=== PATIENT | female | born 1965 | race Caucasian/White ===

== ENCOUNTER 2016-12-05 19:29 | Emergency (ER) | payer OTHER ==
[2016-12-05 19:56] VITALS: RESP 16
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
--- NOTE | 2016-12-05 20:39 | XR ---
EXAMINATION TYPE: XR lumbar spine 2 or 3V DATE OF EXAM: 12/05/2016 8:32 PM COMPARISON: NONE HISTORY: Low back pain TECHNIQUE: 3 views FINDINGS: Vertebra have normal spacing and alignment. Posterior elements are intact. Sacroiliac joint s appear normal. There is no evidence of a compression fracture. IMPRESSION: Normal lumbar spine
--- NOTE | 2016-12-05 20:40 | XR ---
EXAMINATION TYPE: XR sacrum coccyx DATE OF EXAM: 12/05/2016 8:33 PM COMPARISON: NONE HISTORY: Back pain TECHNIQUE: 3 views FINDINGS: Segments have normal alignment. I see no fracture. Sacroiliac joints appear normal. IMPRESSION: Negative sacrum and coccyx exam.
[2016-12-05 20:58] VITALS: BP 138/70; PULSE 78; TEMP 97.8
== END 2016-12-05 20:57 | disposition home or self-care (01) ==
LOC: EC 19:29
DX: S30.0XXA Contusion of lower back and pelvis, initial encounter (principal); F32.9 Major depressive disorder, single episode, unspecified; F17.200 Nicotine dependence, unspecified, uncomplicated; Z88.5 Allergy status to narcotic agent; Z79.899 Other long term (current) drug therapy; W03.XXXA Other fall on same level due to collision with another person, initial encounter; Y93.F9 Activity, other caregiving; Y92.9 Unspecified place or not applicable; Y99.0 Civilian activity done for income or pay
CPT/HCPCS: 72100; 72220; 99283

== ENCOUNTER → 2016-12-09 | Outpatient (CLI) | payer OTHER ==
--- NOTE | 2016-12-09 17:07 | XR ---
EXAMINATION TYPE: XR cervical spine comp DATE OF EXAM: 12/09/2016 4:45 PM COMPARISON: 05/29/2014 HISTORY: 51-year-old female neck pain after fall TECHNIQUE: 5 views FINDINGS: Calcified interstitial densities in the right greater than left upper lung is redemonstrated. No pred ental space widening or prevertebral soft tissue swelling. Scattered facet and uncovertebral joint ar thropathy with mild degenerative disc interspace narrowing in the mid cervical spine. Alignment is ma intained. Normal odontoid view. On the left, changes result in minimal narrowing of the C4-C5, C5-C6, and C6-C7 neuroforamina. On the right, no significant bony spondylotic neuroforaminal narrowing. IMPRESSION: 1. Mild multilevel spondylotic change. No prevertebral soft tissue swelling, malalignment, or acute o sseous abnormality seen. 2. Redemonstrated a calcified interstitial densities in the right greater than left upper lungs as de scribed on CT of 08/22/2014.
== END | disposition home or self-care (01) ==
LOC: RADXRMAIN 16:21
PROVIDERS: ATTEND Emergency Medicine
DX: M47.812 Spondylosis without myelopathy or radiculopathy, cervical region (principal); S13.4XXA Sprain of ligaments of cervical spine, initial encounter
CPT/HCPCS: 72050

== ENCOUNTER → 2017-05-04 | Outpatient (CLI) | payer OTHER ==
--- NOTE | 2017-05-06 07:37 | MM ---
Reason for exam: screening (asymptomatic). Last mammogram was performed 1 year and 5 months ago. History: Patient is postmenopausal. Took hormonal contraceptives for 6 months. Physical Findings: A clinical breast exam by your physician is recommended on an annual basis and results should be correlated with mammographic findings. MG Screening Mammo w CAD Bilateral CC and MLO view(s) were taken. Prior study comparison: December 04, 2015, left breast MG 3d work up w/cad LT. November 26, 2015, bilateral MG screening mammo w CAD. January 02, 2014, bilateral digital screening mammo w/CAD. October 28, 2010, bilateral digital screening mammo w/CAD. The breast tissue is heterogeneously dense. This may lower the sensitivity of mammography. Stable global asymmetry posterior upper inner quadrant left breast. No significant changes when compared with prior studies. ASSESSMENT: Negative, BI-RAD 1 RECOMMENDATION: Routine screening mammogram of both breasts in 1 year.
== END | disposition home or self-care (01) ==
LOC: RADMAMWWP 11:08
PROVIDERS: ATTEND Obstetrics & Gynecology
DX: Z12.31 Encounter for screening mammogram for malignant neoplasm of breast (principal)

== ENCOUNTER → 2018-07-21 | Outpatient (CLI) | payer BC ==
--- NOTE | 2018-07-22 12:41 | MM ---
Reason for exam: screening (asymptomatic). Last mammogram was performed 1 year and 3 months ago. History: Patient is postmenopausal. Took hormonal contraceptives for 6 months. Physical Findings: A clinical breast exam by your physician is recommended on an annual basis and results should be correlated with mammographic findings. MG Screening Mammo w CAD Bilateral CC and MLO view(s) were taken. Prior study comparison: May 04, 2017, bilateral MG screening mammo w CAD. December 04, 2015, left breast MG 3d work up w/cad LT. The breast tissue is heterogeneously dense. This may lower the sensitivity of mammography. No suspicious abnormality. No significant changes when compared with prior studies. ASSESSMENT: Negative, BI-RAD 1 RECOMMENDATION: Routine screening mammogram of both breasts in 1 year.
== END | disposition home or self-care (01) ==
LOC: RADMAMWWP 12:40
PROVIDERS: ATTEND Internal Medicine
DX: Z12.31 Encounter for screening mammogram for malignant neoplasm of breast (principal)
CPT/HCPCS: 77067

== ENCOUNTER → 2019-05-17 | Outpatient (CLI) | payer BC ==
--- NOTE | 2019-05-17 20:15 | CONS ---
CONSULTATION REASON FOR CONSULTATION: Insomnia. This is a 53-year-old female patient who is seeing me for various complaints. She states that she recently was found to be snoring. She has occasionally woken up herself from sleep because of snoring. She has also chronic insomnia which has been gradually getting worse in severity, as will be stated later. She is also waking up tired and sleepy during the day, which is affecting her quality of life. Her sleep is fragmented, as the patient wakes up on multiple occasions. In general, this patient is having difficulty initiating and maintaining sleep. She goes to bed at various times, somewhere between 9 and 11:00. Sometimes it takes her more than 30 minutes to fall asleep. She wakes up frequently in the middle of the night. Sometimes it takes her an hour or two to fall back to sleep. She states that she is unable to take adequate hours of sleep. Despite spending a good 7-8 hours in bed, she thinks that she is not able to achieve adequate number of hours of sleep, although she cannot quantify or objectively say the exact number of hours of sleep that she is getting at night. She wakes up at least 6 times or more in the middle of the night. Upon further questioning, the patient has an extensive psychiatric history. She has a history of anxiety and history of bipolar disorder/depression. She is on a combination of medications that includes Prozac, Lamictal, Abilify and gabapentin. She has been followed up by [facility]. She has been given Ambien in the past to improve her sleep quality; however, this has resulted in sleepwalking and she ended up discontinuing the medication. Her depression is not active and I do not see any active symptoms of manic bipolar disorder, at least on clinical grounds. Other factors affecting her sleep quality include overactive bladder, and the patient wakes up frequently in the middle of the night to urinate. She occasionally wakes up in the middle of the night yelling and talking, and she has also occasional nightmares. On separate occasions she has awakened and gone to the kitchen, where she had a snack or bite of food, and she has no recollection that she did that; she would note that she did that by leftover food or crumbs on her kitchen counter. She is working various shifts. She works in a [employer], and her current work schedule varies, as the patient works 3 days a week afternoon shift, 3 days a week morning shift, and occasionally she works the midnight shift. No recent weight gain. No substance abuse. No alcoholism. No history of any motor vehicle accident because of feeling drowsy or sleepy during the day. PAST MEDICAL HISTORY: 1. Anxiety/depression/bipolar disorder. 2. Headaches. PAST SURGICAL HISTORY: Past surgical history includes: 1. Hysterectomy. 2. Tubal ligation. DRUG ALLERGIES: CODEINE. OUTPATIENT MEDICATION LIST: Outpatient medication list includes: 1. Prozac, dose not known, twice a day. 2. Lamictal, dose not known, twice a day. 3. Abilify once a day. 4. Gabapentin, dose not known, twice a day. 5. Topamax. 6. Loratadine. FAMILY HISTORY: Positive for blood pressure and is also positive for sleep apnea in a few family members. SOCIAL HISTORY: She is a nonsmoker. No history of alcoholism. No history of substance abuse. REVIEW OF SYSTEMS: Fourteen-point review of systems was done and the positive findings are all mentioned above in the history of present illness. Of significance is the absence of any sleep paralysis, hallucinations or cataplexy. There is positive history of sleepwalking and sleeptalking and nightmares and sleep eating disorder. She has anxiety and bipolar and panic. No heartburn. No palpitations. No chest pain at nighttime. No heartburn. No nausea. No emesis. No aspiration. No altered mentation. PHYSICAL EXAMINATION: VITAL SIGNS: BP is 129/71, pulse 60, respirations 16, temperature 98.0, saturation 98% on room air. Height is 5 feet 1 inch, weight 172. Neck size is 13 inches. BMI 31.9. GENERAL APPEARANCE: Calm, comfortable. Not in acute distress. HEAD: Atraumatic, normocephalic. NECK: Supple. There is no JVD. No goiter or neck masses. LUNGS: Clear to auscultation. HEART: Heart sounds are regular rate and rhythm. Normal S1, S2. No S3, S4. No murmurs. ABDOMEN: Soft, nontender. No organomegaly. EXTREMITIES: No edema. No cyanosis or clubbing. NEUROLOGIC: She is awake and alert. There are no focal neurological deficits. PSYCHIATRIC: Negative for anxiety or depression. IMPRESSION: 1. Chronic sleep-onset/maintenance insomnia. This is most likely secondary insomnia related to various comorbidities, the most significant of which is her chronic psychiatric disorder which is a combination of anxiety and bipolar disorder. In addition to that, the patient has an overactive bladder and various symptoms to suggest parasomnias. Otherwise obstructive sleep apnea cannot be completely excluded. 2. Snoring. 3. Sleeptalking. 4. Nightmares. 5. Sleep eating disorder. 6. Chronic anxiety/depression/bipolar disorder. 7. Headaches. PLAN: 1. Will ask the patient to regulate her work schedule. Obviously this is related to her work at the f[employer]. But it is preferable to take either morning or afternoon shifts rather than taking various shifts. 2. Patient's related sleep hygiene measures have been discussed. This has been also discussed through her psychiatrist, and this was re-emphasized. 3. Continue same psychiatric medication. 4. I told her the addition of Klonopin may be helpful, as the patient has symptoms to suggest parasomnias, including sleep eating disorder and sleeptalking and sleepwalking. At the same time, Klonopin may help her with anxiety and may be an agent for sleep induction and maintenance in addition to the rest of her medications. 5. Will initiate the Klonopin 0.5 mg at bedtime and following that, will proceed with a screening polysomnogram to assess the patient's sleep quality, sleep architecture, maintenance, efficiency and to look for any other abnormalities such as sleep breathing disorder contributing to her sleep fragmentation insomnia. Will continue to follow. She is also going to coordinate my recommendations with her psychiatrist, Dr. Herring. FARHAD / PARRISH: [id number] /
== END ==
LOC: SLEEP 15:21
PROVIDERS: ATTEND Internal Medicine Critical Care Medicine
DX: G47.00 Insomnia, unspecified (principal); F31.9 Bipolar disorder, unspecified; N32.81 Overactive bladder; F50.89 Other specified eating disorder; F41.8 Other specified anxiety disorders; R51 Headache; Z79.899 Other long term (current) drug therapy; Z88.5 Allergy status to narcotic agent
CPT/HCPCS: 99211

== ENCOUNTER → 2020-07-04 | Outpatient (CLI) | payer BC ==
--- NOTE | 2020-07-05 11:22 | MM ---
Reason for exam: screening (asymptomatic). Last mammogram was performed 1 year and 11 months ago. History: Patient is postmenopausal. Took hormonal contraceptives for 6 months. Physical Findings: A clinical breast exam by your physician is recommended on an annual basis and results should be correlated with mammographic findings. MG Screening Mammo w CAD Bilateral CC and MLO view(s) were taken. Prior study comparison: July 21, 2018, bilateral MG screening mammo w CAD. May 04, 2017, bilateral MG screening mammo w CAD. The breast tissue is heterogeneously dense. This may lower the sensitivity of mammography. Finding: There is a 9 mm circumscribed round mass in the lower inner quadrant, posterior position of the right breast. Asymmetric breast tissue in the left breast is stable. New finding since July 21, 2018 and May 04, 2017. ASSESSMENT: Incomplete: need additional imaging evaluation, BI-RAD 0 RECOMMENDATION: Ultrasound of the right breast. [facility] will attempt to contact patient to return for ultrasound.
== END | disposition home or self-care (01) ==
LOC: RADMAMWWP 07:57
PROVIDERS: ATTEND Internal Medicine
DX: Z12.31 Encounter for screening mammogram for malignant neoplasm of breast (principal)
CPT/HCPCS: 77067

== ENCOUNTER → 2020-07-18 | Outpatient (CLI) | payer BC ==
--- NOTE | 2020-07-18 10:21 | USB ---
Reason for exam: additional evaluation requested from abnormal screening. History: Patient is postmenopausal. Took hormonal contraceptives for 6 months. Physical Findings: Nurse did not find any significant physical abnormalities on exam. US Breast Workup Limited RT Technologist: Kelsey Hameed Right limited breast ultrasound including focal area of concern, retroareolar and axilla is negative. These results were verbally communicated with the patient and result sheet given to the patient on 07/18/20. ASSESSMENT: Incomplete: need additional imaging evaluation, BI-RAD 0 RECOMMENDATION: Special view mammogram of the right breast.
--- NOTE | 2020-07-18 10:23 | MM ---
Reason for exam: additional evaluation requested from abnormal screening. Last mammogram was performed less than 1 month ago. History: Patient is postmenopausal. Took hormonal contraceptives for 6 months. MG Work Up Mamm w CAD RT Spot compression CC, spot compression MLO, and LM view(s) were taken of the right breast. Prior study comparison: July 04, 2020, bilateral MG screening mammo w CAD. July 21, 2018, bilateral MG screening mammo w CAD. Persistent nodule right breast. These results were verbally communicated with the patient and result sheet given to the patient on 07/18/20. ASSESSMENT: Suspicious, BI-RAD 4 RECOMMENDATION: Stereotactic core biopsy of the right breast. Called Dr. Zavala's office with mammographic findings and has scheduled an appointment for the patient for 08/07/20 at 10:[address] Church. PRELIMINARY REPORT CALLED AND FAXED TO DR. CHURCH ON 07/18/20.
== END | disposition home or self-care (01) ==
LOC: RADUSWWP 08:48
PROVIDERS: ATTEND Internal Medicine
DX: R92.8 Other abnormal and inconclusive findings on diagnostic imaging of breast (principal)
CPT/HCPCS: 77065

== ENCOUNTER → 2021-07-22 | Outpatient (CLI) | payer BC ==
--- NOTE | 2021-07-23 06:01 | CT ---
EXAMINATION TYPE: CT chest wo con DATE OF EXAM: 07/22/2021 COMPARISON: Prior chest CT August 22, 2014 HISTORY: Interstitial pulmonary disease, abnormal findings xray CT DLP: 238.7 mGycm. Automated Exposure Control for Dose Reduction was Utilized. TECHNIQUE: CT scan of the thorax is performed without IV contrast. FINDINGS: LUNGS: Persistent reticular and reticulonodular opacities bilaterally greater in the upper lungs wors e lower lungs with some interval progression from 2014 study. There is 4 mm anterior right mid lung n odule axial image 28 on current study. No pleural effusion or pneumothorax seen. No bronchiectasis. N o cystic change or honeycombing. MEDIASTINUM: Lack of IV contrast is noted to limit evaluation for mediastinal and especially hilar ad enopathy. There are no definitive greater than 1 cm mediastinal lymph nodes. No cardiomegaly or per icardial effusion is seen. OTHER: Debris-filled stomach suggests recent meal ingestion IMPRESSION: Moderate to severe parenchymal fibrotic changes with reticular and reticulonodular appear ance greatest centrally and involving the upper lungs, some progression in findings from 2014 CT note d. Consider sarcoidosis as possible etiology.
== END | disposition home or self-care (01) ==
LOC: RADCTMAIN 18:13
PROVIDERS: ATTEND Internal Medicine
DX: J84.10 Pulmonary fibrosis, unspecified (principal)
CPT/HCPCS: 71250

== ENCOUNTER → 2021-07-25 | Outpatient (CLI) | payer BC ==
--- NOTE | 2021-07-25 11:19 | BD ---
EXAMINATION TYPE: Axial Bone Density DATE OF EXAM: 07/25/2021 COMPARISON: NONE CLINICAL HISTORY: Postmenopausal female. Height: 62 Weight: 155.8 FRAX RISK QUESTIONS: Alcohol (3 or more units per day): no Family History (Parent hip fracture): no Glucocorticoids (More than 3mos): no (Ex: prednisone, prednisolone, methylprednisolone, dexamethasone, and hydrocortisone). History of Fracture in Adulthood: no Secondary Osteoporosis: 1. Type 1 Diabetes: no 2. Hyperthyroidism: no 3. Menopause before 45: no 4. Malnutrition: no 5. Chronic liver disease: no Rheumatoid Arthritis: no Current Tobacco Use: no RISK FACTORS HISTORY OF: Surgery to Spine/Hip(right/left)/Wrist (right/left): no Family History of Osteoporosis: yes Active: yes Diet low in dairy products/other sources of calcium: no Postmenopausal woman: yes Lost more than 2 inches in height since high school: no MEDICATIONS: anxiety meds Additional History: EXAM MEASUREMENTS: Bone mineral densitometry was performed using the [employer]. Bone mineral density as measured about the Lumbar spine is: ----- L1-L4(G/cm2): 1.153 T Score Values are as follows: ----- L2: -1.0 ----- L3: 0.0 ----- L4: 0.4 ----- L1-L4: -0.2 Bone mineral density : baseline Bone mineral density about the R hip (g/cm2): 0.944 Bone mineral density about the L hip (g/cm2): 0.916 T Score values are as follows: -----R Neck: -0.7 -----L Neck: -0.9 -----R Total: 0.1 -----L Total: -0.4 Bone mineral density : baseline IMPRESSION: Normal (Values between +1 and -1 indicate normal bone mass). Consider repeating this study in 5 year s or sooner if there is some new clinical indication. NOTE: T-SCORE=SD OF THE YOUNG ADULT MEAN.
== END | disposition home or self-care (01) ==
LOC: RADBDWWP 10:17
PROVIDERS: ATTEND Internal Medicine
DX: Z13.820 Encounter for screening for osteoporosis (principal); Z78.0 Asymptomatic menopausal state
CPT/HCPCS: 77080

== ENCOUNTER → 2021-09-03 | Outpatient (CLI) | payer BC ==
--- NOTE | 2021-09-03 15:01 | MM ---
Reason for exam: additional evaluation requested from prior study. Last mammogram was performed 1 year and 2 months ago. History: Patient is postmenopausal. Benign excisional biopsy of the right breast, August 2020. Took hormonal contraceptives for 6 months. Physical Findings: Nurse did not find any significant physical abnormalities on exam. MG Diagnostic Mammo w CAD CORI Bilateral CC and MLO view(s) were taken. Prior study comparison: July 18, 2020, right breast MG work up mamm w CAD RT. July 04, 2020, bilateral MG screening mammo w CAD. The breast tissue is heterogeneously dense. This may lower the sensitivity of mammography. Previous mammotome biopsy in the right breast. Asymmetric breast tissue in the left breast is stable. No significant new findings when compared with previous films. These results were verbally communicated with the patient and result sheet given to the patient on 09/03/21. ASSESSMENT: Benign, BI-RAD 2 RECOMMENDATION: Routine screening mammogram of both breasts in 1 year.
== END | disposition home or self-care (01) ==
LOC: RADMAMWWP 14:08
PROVIDERS: ATTEND Internal Medicine
DX: N64.89 Other specified disorders of breast (principal); Z78.0 Asymptomatic menopausal state
CPT/HCPCS: 77066

== ENCOUNTER → 2024-02-05 | Outpatient (CLI) | payer BC ==
--- NOTE | 2024-02-08 08:35 | MM ---
Reason for Exam: Screening (asymptomatic). Last mammogram was performed 2 year(s) and 5 month(s) ago. Patient History: Menarche at age 11. First Full-Term at age 21. Left ovary removed at age 49. Right ovary removed at age 49. Hysterectomy at age 49. Postmenopausal. Hormonal Contraceptives for 6 months. 08/2020, Benign Excisional Biopsy on the right side. Risk Values: Anali 5 year model risk: 1.6%. NCI Lifetime model risk: 8.9%. Prior Study Comparison: 07/04/2020 Bilateral Screening Mammogram, [facility]. 07/18/2020 Right Diagnostic Mammogram, [facility]. 09/03/2021 Bilateral Diagnostic Mammogram, [facility]. Tissue Density: There are scattered areas of fibroglandular density. Findings: Analyzed By CAD. Right breast: There is no suspicious group of microcalcifications or new suspicious mass. Left breast: There is no suspicious group of microcalcifications or new suspicious mass. Overall Assessment: Negative, BI-RAD 1 Management: Screening Mammogram of both breasts in [address] [facility] will attempt to contact patient to return for supplemental views and ultrasound if indicated. Patient should continue monthly self-breast exams. A clinical breast exam by your physician is recommended on an annual basis. This exam should not preclude additional follow-up of suspicious palpable abnormalities. Note on Anali scores and lifetime risk: 1. A Anali score greater than 3% is considered moderate risk. If this is the case, consider specialist referral to assess eligibility for a risk reducing agent. 2. If overall lifetime risk for the development of breast cancer is 20% or higher, the patient may qualify for future screening with alternating mammogram and breast MRI. Electronically signed and approved by: Puneet Acharya DO
== END | disposition home or self-care (01) ==
LOC: RADMAMWWP 12:54
PROVIDERS: ATTEND Internal Medicine
DX: Z12.31 Encounter for screening mammogram for malignant neoplasm of breast (principal); Z78.0 Asymptomatic menopausal state
CPT/HCPCS: 77063; 77067

== ENCOUNTER 2024-07-19 07:35 | Day surgery (SDC) | payer BC ==
[2024-07-19 08:01] VITALS: TEMP 97.2
[2024-07-19] MEDS: LACTATED RINGERS 1,000 ML IV SCH (08:11)
[2024-07-19] MEDS: IV FLUID CONTINUATION 1,000 ML IV ONE (08:11)
[2024-07-19] MEDS ORDERED: PROPOFOL 10 MG/ML 20 ML VIAL IV ONE (09:08)
--- NOTE | 2024-07-19 09:25 | P.PCN ---
Date of Procedure: 07/19/24 Procedure(s) Performed: BRIEF HISTORY: Patient is a 58-year-old pleasant white female scheduled for an elective colonoscopy as a part of screening for colon cancer. PROCEDURE PERFORMED: Colonoscopy with biopsy. PREOPERATIVE DIAGNOSIS: Screening for colon cancer. IV sedation per Anesthesia. PROCEDURE: After informed consent was obtained, the patient, was brought into the endoscopy unit. IV sedation was administered by Anesthesia under continuous monitoring. Digital rectal examination was normal. Initially the Olympus CF-160 flexible video colonoscope was then inserted in the rectum, gradually advanced into the cecum without any difficulty. Careful examination was performed as the scope was gradually being withdrawn. Ileocecal valve and the appendiceal orifice were visualized and appeared normal. Prep was excellent. Mucosa of the cecum, ascending colon, transverse colon, descending colon, sigmoid colon, and rectum appeared normal. In the distal rectum there was a 3 mm sessile polyp that was removed by cold biopsy. Retroflexion was performed in the rectum and no lesions were seen. The patient tolerated the procedure well. IMPRESSION: 3 mm distal rectal polyp status post cold biopsy Rest of the colon appeared normal RECOMMENDATIONS: Findings of this examination were discussed with the patient as well as her family. She was advised to follow-up with the biopsy results. If the biopsy reveals adenoma she can have repeat colonoscopy in 5 to 7 years.
[2024-07-19 10:02] VITALS: BP 119/75; PULSE 67; RESP 20
== END 2024-07-19 10:28 | disposition home or self-care (01) ==
LOC: ORWHC2ENDO 07:35
PROVIDERS: ATTEND Internal Medicine Gastroenterology
DX: Z12.11 Encounter for screening for malignant neoplasm of colon (principal); K62.1 Rectal polyp; E78.5 Hyperlipidemia, unspecified; F17.210 Nicotine dependence, cigarettes, uncomplicated; M54.50 Low back pain, unspecified; F31.9 Bipolar disorder, unspecified; Z88.5 Allergy status to narcotic agent; Z79.899 Other long term (current) drug therapy; Z79.83 Long term (current) use of bisphosphonates; Z79.02 Long term (current) use of antithrombotics/antiplatelets
CPT/HCPCS: 88305; 45380; J2704; 45385

== ENCOUNTER 2025-04-28 11:23 | Emergency (ER) | payer OTHER, BC ==
[2025-04-28 11:28] VITALS: RESP 18
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
--- NOTE | 2025-04-28 13:32 | CT ---
EXAMINATION TYPE: CT brain cspine wo con CT DLP: 1379.2 mGycm, Automated exposure control for dose reduction was used. DATE OF EXAM: 04/28/2025 1:04 PM COMPARISON: Cervical spine radiograph 12/09/2016, CT chest 07/22/2021 CLINICAL INDICATION:Female, 59 years old with history of head injury; Head Injury, pain TECHNIQUE: Brain: Multiple axial CT images of the brain were obtained without IV contrast. Cspine: Axial CT images from the skull base to the inferior aspect of T2 we obtained without intraven ous contrast. Coronal and sagittal reformatted images were also reviewed. FINDINGS: Brain: Extra-axial spaces: No abnormal extra-axial fluid collections. Ventricular system: Within normal limits Cerebral parenchyma: No acute intraparenchymal hemorrhage or mass effect. The henley-white junction is well differentiated. Cerebellum: Unremarkable. Mass effect: No evidence of midline shift. Intracranial vasculature: unremarkable Soft tissues: Normal. Calvarium/osseous structures: No depressed skull fracture. Paranasal sinuses and mastoid air cells: Clear. Visualized orbits: Orbital contents are intact. Cervical spine: Fracture: None. Osseous structures: Disc space narrowing with endplate sclerosis and anterior osteophytosis at C5-C7. Vertebral alignment: Degenerative grade 1 anterolisthesis of C3 on C4 and C4 on C5. Spinal canal/Neural Foramina: No evidence of significant spinal canal narrowing. Facet joint uncovert ebral joint arthropathy scattered throughout the cervical spine with varying degrees of neural forami nal stenosis. Neck soft tissues: Prevertebral soft tissues are within normal limits. Bilateral palatine tonsillolit hs with right greater than left. Other: The airway is patent. Redemonstration of patchy groundglass opacities with reticulonodular shanelle cifications within the visualized bilateral upper lungs. IMPRESSION: 1. No acute intracranial process. 2. No evidence of cervical spine fracture. 3. Mild multilevel degenerative disc disease. 4. Redemonstration of advanced parenchymal fibrotic changes with reticular nodular appearance and nguyen undglass opacities from prior CT 07/22/2021. Findings suggest interstitial lung disease. [facility], , 04/28/2025 1:30 PM
[2025-04-28 13:59] VITALS: BP 132/84; PULSE 67; TEMP 97.8
== END 2025-04-28 13:59 | disposition home or self-care (01) ==
LOC: EC 11:23
DX: S09.90XA Unspecified injury of head, initial encounter (principal); Z88.5 Allergy status to narcotic agent; W19.XXXA Unspecified fall, initial encounter
CPT/HCPCS: 70450; 72125; 99283